=== PATIENT | female | born 1985 | race Two or more races ===

== ENCOUNTER 2016-08-31 11:38 | Outpatient (CLI) | payer OTHER | END 2016-08-31 11:39 | disposition home or self-care (01) | DX: Z36 Encounter for antenatal screening of mother (principal) ==

== ENCOUNTER 2016-09-28 15:24 | Outpatient (CLI) | payer OTHER | END 2016-09-28 15:25 | disposition home or self-care (01) | DX: Z11.3 Encounter for screening for infections with a predominantly sexual mode of transmission (principal) ==

== ENCOUNTER 2016-11-02 09:17 | Outpatient (CLI) | payer OTHER | END 2016-11-02 09:18 | disposition home or self-care (01) | DX: I34.9 Nonrheumatic mitral valve disorder, unspecified (principal); R07.9 Chest pain, unspecified ==

== ENCOUNTER 2016-11-15 07:38 | Outpatient (CLI) | payer OTHER | END 2016-11-15 07:39 | disposition home or self-care (01) | DX: Z36 Encounter for antenatal screening of mother (principal) ==

== ENCOUNTER 2017-01-04 11:51 | Outpatient (CLI) | payer OTHER ==
[2017-01-04 13:18] LABS: HCT - HEMATOCRIT 33.7 % (37.0-47.0); HGB - HEMOGLOBIN 11.5 g/dL (12.0-16.0); MEAN CORPUSCULAR HEMOGLOBIN 31.1 pg (27.0-31.0); MEAN CORPUSCULAR HGB CONC 34.1 g/dL (32.0-36.0); MEAN CORPUSCULAR VOLUME 91.2 fL (81.0-99.0); MEAN PLATELET VOLUME 8.1 fL (7.9-10.8); RED BLOOD COUNT 3.69 10^6/uL (4.20-5.40); RED CELL DISTRIBUTION WIDTH 12.8 % (12.0-15.0); WHITE BLOOD COUNT 12.7 x10^3/uL (4.8-10.8)
== END 2017-01-04 11:52 | disposition home or self-care (01) ==
LOC: LAB 11:51
PROVIDERS: ATTEND Nurse Practitioner Obstetrics & Gynecology
DX: Z36 Encounter for antenatal screening of mother (principal)
CPT/HCPCS: 36415; 82950; 86850

== ENCOUNTER 2017-01-11 07:56 | Outpatient (CLI) | payer OTHER | END 2017-01-11 07:57 | disposition home or self-care (01) | DX: R73.02 Impaired glucose tolerance (oral) (principal) ==

== ENCOUNTER 2017-02-08 13:49 | Outpatient (CLI) | payer OTHER ==
[2017-02-08 18:07] LABS: BILIRUBIN,URINE NEGATIVE (NEGATIVE); PH,URINE 5.5 PH (5.0-7.5)
[2017-02-08 19:20] LABS: WBC,URINE >25 /HPF (0-5)
== END 2017-02-08 13:50 | disposition home or self-care (01) ==
LOC: LAB.R 13:49
PROVIDERS: ATTEND Nurse Practitioner Obstetrics & Gynecology
DX: R82.99 Other abnormal findings in urine (principal)
CPT/HCPCS: 81001

== ENCOUNTER 2017-03-01 11:03 | Outpatient (CLI) | payer OTHER | END 2017-03-01 11:04 | disposition home or self-care (01) | LOC: LAB.R 11:03 | PROVIDERS: ATTEND Nurse Practitioner Obstetrics & Gynecology | DX: Z36 Encounter for antenatal screening of mother (principal) | CPT/HCPCS: 87081 ==

== ENCOUNTER 2017-03-13 23:43 | Inpatient (IN) | payer OTHER ==
[2017-03-14] MEDS ORDERED: fentaNYL 100 MCG/2 ML VIAL IVP PRN (01:24)
[2017-03-14] MEDS ORDERED: SODIUM CHLORIDE FLUSH 0.9% 10 ML SYRINGE IVP PRN (01:24)
--- NOTE | 2017-03-14 01:40 | HISTORY & PHYSICAL EXAMINATION ---
Admit History - Instructions [place]/Slash: -Left hand click circles element as positive or present. -Right hand click slashes element as negative or not present. - Visit Reason Visit Reason: Membranes rupture - Care: positive: [facility] Risk/History: positive: None Complications This : positive: None Smoking Status: Never smoker - Mother's Labs Mother's Blood Type: positive: O Mother's RH: positive: Positive GBS: positive: Group B Step Negative Rubella Status: positive: Immune - Other Maternal History Other Maternal History: HPI: This 31yo @ 37.2wks gestation by L= 9.1 wk U/S presents for spontaneous rupture of membranes. Upon evaluation she was noted to have grossly ruptured membranes with continuous leakage of fluid, nitrizine positive. Belle every 2-3 minutes. She was admitted to L&D for management. Dating criteria: 1.) LMP 06/26/16 2.) First ultrasound 08/24/16 @ 9.1wks - agrees 3.) First exam 08/24/16 @ 9.1wks - agrees 4.) Serial exams @ 13-35.3 wks -agrees OB History: G1: Current [place] History: Menarche age 13, menses every 24-26 days; irregular STD's- none [place] surgeries: none Abnormal paps and treatment: no Hx abnormal, last pap 04/27/2016 WNL PMH: Heart murmur, mitral valve prolapse dx @ age 13 *See Echo Report* Acne, vitiligo PSHx: injuinal hernia repair- 1988 Social Hx: Never smoke, no IVDA, previous alcohol use prior to >2/day Family Hx: Asthma- mother; Diabetes - mother diagnosed at age 50 Meds: PNV Allergies: NKA labs: 09/11/2016 Blood type O, pos, Antibody: neg Hgb 13.4, Hct 39.7, PLT 289 Rubella immune HIV nonreactive GC/CT ne01/2015 Hep B: neg Treponema nonreactive 28 wk labs: Hgb 11.5 Antibody neg 1 hour GTT 151 3 hour GTT: 93, 150, 127, 126 GBS negative Ultrasounds: 11/15/2016 FAS: posterior fundal placenta, no previa, size c/w dating, FAS WNL except echogenic focus affiliated with the left ventricle. Tdap: declined - wants Assessment: 31yo @ 37.2 wks gestation by L=9.1wk U/S SROM Early labor Desires epidural Plan: Admit to L&D Will perform SVE to monitor progression/adequacy of contractions Activity ad indicated; encouraged position changes Epidural per maternal request Anticipate spontaneous vaginal delivery Physical - Abdominal Exam Vital Signs: Temp Pulse Resp BP Pulse Ox 36.8 C 89 18 105/68 99 03/14/17 00:02 03/14/17 00:02 03/14/17 00:02 03/14/17 00:02 03/14/17 00:02
--- NOTE | 2017-03-14 01:41 | HISTORY & PHYSICAL EXAMINATION ---
Admit History - Instructions [place]/Slash: -Left hand click circles element as positive or present. -Right hand click slashes element as negative or not present. - Smoking Status: Never smoker - Other Maternal History Other Maternal History: Echocardiogram: 11/08/16 WNL -No evidence of mitral stenosis noted. There is trace mitral regurgitation. There is minimal bowing of the anterior mitral valve leaflet Physical - Abdominal Exam Vital Signs: Temp Pulse Resp BP Pulse Ox 36.8 C 89 18 105/68 99 03/14/17 00:02 03/14/17 00:02 03/14/17 00:02 03/14/17 00:02 03/14/17 00:02
--- NOTE | 2017-03-14 01:59 | PROVIDER PROGRESS NOTE ---
Labor Progress Note - Uterine Monitoring Uterine Monitoring Mode: positive: External toco Contraction Intensity: positive: Mild to moderate Uterine Resting Tone: positive: Soft - Monitoring Heart Rate Variability: positive: Moderate (6-25 bmp) Accelerations: positive: Present, 15x15 Decelerations: positive: None Strip Review: positive: Category I - Vaginal Exam Dilation (in cm): 1 Effacement (%): 50 Station: -2 Cervical Position: Posterior - Labor Progress Note Labor Progress Note/Additional Text: S: Had large gush of clear fluid 03/13/2017 @ 2300 and continued to leak. Feeling cramping with contractions. Able to rest in the bed and trying to get some sleep. supportive at bedside. O: Grossly rupture membranes, nitrizine positive. Contractions palpate moderate every 2-3 minutes lasting 40-90 seconds with soft resting tone. FHR baseline 140 , moderate variability, + accels, no decels. SVE 1/50/-2, posterior. A: 31yo @ 37.2wks gestation by L=9.1wk U/S SROM x 3 hours - afebrile FHR Category I P: Continuous monitoring Routine temperature checks Plan SVE in 4 hours or sooner PRN to determine contractions are adequate to make cervical change Reviewed with patient potential for starting Pitocin in 4 hours if contractions not adequately changing her cervix but at this time she is erma regularly. Encouraged rest at this time and if she becomes uncomfortable I encouraged her to ambulate and change positions. May get into jacuzzi. Epidural per maternal request. Pt verbalized understanding and agrees to above plan. Denies further questions or concerns.
[2017-03-14] MEDS: LACTATED RINGERS 1,000 ML IV SCH ×3 (02:16→15:26)
[2017-03-14 02:54] LABS: BASOPHILS # (AUTO) 0.1 10^3/uL (0.0-0.1); BASOPHILS % (AUTO) 0.6 %; EOSINOPHILS # (AUTO) 0.1 10^3/uL (0.0-0.7); EOSINOPHILS % (AUTO) 0.4 %; HCT - HEMATOCRIT 31.5 % (37.0-47.0); HGB - HEMOGLOBIN 10.9 g/dL (12.0-16.0); LYMPHOCYTES # (AUTO) 2.5 10^3/uL (1.5-3.5); LYMPHOCYTES % (AUTO) 17.7 %; MEAN CORPUSCULAR HEMOGLOBIN 30.5 pg (27.0-31.0); MEAN CORPUSCULAR HGB CONC 34.5 g/dL (32.0-36.0); MEAN CORPUSCULAR VOLUME 88.6 fL (81.0-99.0); MEAN PLATELET VOLUME 8.8 fL (7.9-10.8); MONOCYTES # (AUTO) 1.1 10^3/uL (0.0-1.0); MONOCYTES % (AUTO) 7.3 %; NEUTROPHILS # (AUTO) 10.6 10^3/uL (1.5-6.6); RED BLOOD COUNT 3.56 10^6/uL (4.20-5.40); RED CELL DISTRIBUTION WIDTH 13.6 % (12.0-15.0); UNCORRECTED WHITE BLOOD COUNT 14.3 x10^3/uL; WHITE BLOOD COUNT 14.3 x10^3/uL (4.8-10.8)
--- NOTE | 2017-03-14 08:18 | PROVIDER PROGRESS NOTE ---
Labor Progress Note - Uterine Monitoring Uterine Monitoring Mode: positive: External toco Contraction Intensity: positive: Moderate Uterine Resting Tone: positive: Soft - Monitoring Monitor Mode: positive: External ultrasound Heart Rate Variability: positive: Moderate (6-25 bmp) Accelerations: positive: Present, 15x15 Decelerations: positive: None Strip Review: positive: Category I - Vaginal Exam Dilation (in cm): 2 Effacement (%): 75 Station: -2 Cervical Position: Posterior - Labor Progress Note Labor Progress Note/Additional Text: S: Feeling more uncomfortable with contractions. [place] good in the jacuzzi but was eating breakfast while sitting on the exercise ball at the bedside. Was unable to sleep last night due to being both uncomfortable and excited to have a baby. Desires to labor without epidural for awhile but planning epidural eventually. May get back in the jacuzzi after breakfast. supportive at bedside. O: FHR baseline 140's, +accels, no decels. Contractions palpate moderate every 4 -5 minutes lasting 40-90 seconds with soft resting tone. SVE 2/75/-2, posterior , soft. A: 31yo @ 37.2 wks gestation by L=9.1wks Early labor SROM x 9hrs - afebrile P: Initiate pitocin protocol Continuous monitoring Encouraged ambulation and frequent position changes Epidural per maternal request Anticipate spontaneous vaginal delivery Recheck SVE in 4 hours or sooner PRN
[2017-03-14] MEDS: SODIUM CHLORIDE FLUSH 0.9% 10 ML SYRINGE IVP SCH ×2 (08:31→09:06)
[2017-03-14] MEDS ORDERED: OXYTOCIN/LACTATED RINGERS 250 ML IV SCH (09:00)
[2017-03-14] MEDS ORDERED: fent/BUPIV 2 MCG/0.125% 250 ML EP ONE (10:13)
[2017-03-14] MEDS ORDERED: NALBUPHINE 20 MG/ML AMP IVP PRN (11:42)
[2017-03-14] MEDS ORDERED: fent/BUPIV 2 MCG/0.125% 250 ML EP PRN ×2 (11:42→15:57)
[2017-03-14] MEDS ORDERED: LACTATED RINGERS 500 ML IV ONE (11:42)
[2017-03-14] MEDS ORDERED: diphenhydrAMINE INJ 50 MG/ML VIAL IVP PRN (11:42)
[2017-03-14] MEDS ORDERED: ePHEDrine 50 MG/ML VIAL IVP PRN (11:42)
[2017-03-14] MEDS ORDERED: METOCLOPRAMIDE 10 MG/2 ML VIAL IVP PRN (11:42)
[2017-03-14] MEDS ORDERED: NALOXONE 0.4 MG/ML VIAL IVP PRN (11:42)
[2017-03-14] MEDS ORDERED: ONDANSETRON 4 MG/2 ML VIAL IVP PRN (11:42)
--- NOTE | 2017-03-14 12:52 | PROVIDER PROGRESS NOTE ---
Labor Progress Note - Uterine Monitoring Uterine Monitoring Mode: positive: External toco Contraction Intensity: positive: Moderate to strong Uterine Resting Tone: positive: Soft - Monitoring Heart Rate Variability: positive: Moderate (6-25 bmp) Accelerations: positive: Present, 15x15 Decelerations: positive: Early, Late, Variable Strip Review: positive: Category II - Vaginal Exam Dilation (in cm): 3 Effacement (%): 75 Station: -2 Cervical Position: Midposition - Labor Progress Note Labor Progress Note/Additional Text: S: Pt comfortable with epidural. Able to rest and get some sleep. sleeping at bedside. O: SVE 3/75/-2, mid-position, soft; Contractions palpate strong every 2-4 minutes lasting 60-80 seconds. FHR baseline 130, moderate variability, +accels, 1 late deceleration, occasional early decelerations, and variable decelerations with quick return to baseline. Pitocin at 3 A: 31yo @ 37.3wks gestation by L=9.1wk U/S FHR Category II SROM x 12.5hrs - afebrile GBS neg P: Continue pitocin per protocol Position changes/rotation on peanut ball Continue active management Anticipate spontaneous vaginal delivery.
--- NOTE | 2017-03-14 17:06 | PROVIDER PROGRESS NOTE ---
Labor Progress Note - Uterine Monitoring Uterine Monitoring Mode: positive: External toco Contraction Intensity: positive: Strong Uterine Resting Tone: positive: Soft - Monitoring Monitor Mode: positive: External ultrasound Heart Rate Variability: positive: Minimal (0-5 bpm) Accelerations: positive: Present, 15x15 Decelerations: positive: Early, Variable Strip Review: positive: Category II - Vaginal Exam Dilation (in cm): 6 Effacement (%): 100 Station: 0 - Labor Progress Note Labor Progress Note/Additional Text: S: Pt comfortable with epidural. Questions about immediate period. Wants to have baby cleaned off prior to being put on her chest. O: FHR baseline 130's, period of minimal variability, +accels, occasional variable decels, occasional early decels, rare late decels. Contractions palpate firm every 2-4 minutes lasting 40-90 seconds. SVE at approximately 0600 6-7/100/0, stretchy. A: 31yo @ 37.3wks gestation by L=9.1wk U/S SROM x 18hrs - afebrile GBS neg Pitocin 1.5 P: Continue active management Continue to titrate pitocin per protocol Continue position changes in bed Anticipate spontaneous vaginal delivery
[2017-03-14] MEDS ORDERED: LIDOCAINE 1% 50 ML MDV ONE (18:41)
[2017-03-14] MEDS ORDERED: MINERAL OIL LIGHT 10 ML MC ONE (18:42)
[2017-03-14] MEDS ORDERED: WITCH HAZEL/GLYCERIN 1 EACH MED..PAD TOP PRN (20:17)
[2017-03-14] MEDS ORDERED: OXYTOCIN/LACTATED RINGERS 250 ML IV ONE (20:17)
[2017-03-14] MEDS ORDERED: HYDROCORTISONE/PRAMOXINE 10 GM PR PRN (20:17)
[2017-03-14] MEDS ORDERED: HYDROcod/ACETAM 5/325 MG TABLET PO PRN (20:17)
--- NOTE | 2017-03-14 20:29 | DELIVERY NOTE ---
Delivery Note - Labor Labor: positive: Spontaneous - Delivery Method Delivery Method: positive: Spontaneous vaginal delivery - Presentation Presentation: positive: Vertex, CR - left occiput anterior - Nuchal Cord Nuchal Cord: positive: None - Amniotic Fluid Description Amniotic Fluid Description: positive: Clear - Episiotomy Type Episiotomy Type: positive: None - Laceration Laceration: positive: 1st degree - Suture Suture Type: positive: Vicryl Suture Size: positive: 3-0 - Delivery Outcome Delivery Outcome: positive: Livebirth - [place]: positive: Placed in direct skin contact with mother, Bulb syringe, Stimulated, [place] used [place] sex: positive: Female - Cord Cord: positive: 3 vessels - Placenta Placenta: positive: Intact, Spontaneous - Estimated Blood Loss Estimated Blood Loss (in cc): 300 - Post Delivery Events Post Delivery Events: positive: No post delivery events - Delivery Comments (Free Text/Narrative) Delivery Comments (Free Text/Narrative): Labor: This 31yo @ 37.3wks gestation by L=9.1wk U/S presented @ 2330 on 03/13/2017 with SROM large amount of clear fluid. Cervix was 1/50/-2, vertes. Pt was erma every 2-3 minutes. She was allowed to labor for 4 hours - SVE recheck revealed 2/75/-2 and pitocin IV was started at that time and titrated per protocol. FHR demonstrated 120-130 baseline in a Category II pattern. Normal labor course. Epidural placed upon maternal request. Pt had ruptured membranes for 20.5hrs and remained afebrile. Normal SVB of a viable female named Dora. No nuchal. 's 8 and 9 at 1 and 5 minutes respectively at 1926 on 03/14/2017. The was placed on maternal abdomen, stimulated, dried, and placed skin to skin. The umbilical cord was allowed to stop pulsating and was doubly clamped and cut by FOB. Cord blood was obtained. Placenta delivered spontaneously and intact at 1931. 3VC. Pitocin was administered via IV for hemostasis. EBL 300mL. Uterine fundus firm and there is no excessive bleeding. The perineum, vagina, and cervix were inspected and found to have 1st degree laceration inside the vagina. Laceration was repaired using 3-[address]-1 needle in standard fashion under sterile conditions. Vaginal examination following the repair was done. Tissues well approximated. initiated. Family bonding well. Both mother and baby are in stable condition.
[2017-03-14] MEDS: IBUPROFEN 800 MG TABLET PO SCH (20:52)
[2017-03-14] MEDS ORDERED: LACTATED RINGERS 1,000 ML IV SCH (21:00)
--- NOTE | 2017-03-14 23:18 | PROVIDER PROGRESS NOTE ---
Subjective - Prog Note Date Prog Note Date: 03/14/17 Prog Note Time: 23:16 - Subjective Pt reports feeling: No change Subjective: Was called to bedside by RN. Patient delivered about 4 hours ago via . Epidural was stopped shortly after delivery. Patient attempted to ambulate without RN help when she fell. Patient hit knees bilaterally on the floor. Denies trauma to the head or abdomen. Feeling fine now. Denies loss of consciousness, dizziness. Objective - Vital Signs/Intake & Output Reviewed Vital Signs: Yes Vital Signs: Vital Signs x48h Temp Pulse Resp BP Pulse Ox 03/14/17 22:02 97.7 F 95 16 102/51 L 98 03/14/17 21:31 82 16 105/57 L 03/14/17 21:16 83 18 111/61 99 03/14/17 21:01 82 16 95/52 L 99 03/14/17 20:46 85 18 101/53 L 100 03/14/17 20:31 83 16 98/47 L 100 03/14/17 20:21 74 106/54 L 03/14/17 19:46 99 16 113/91 H 03/14/17 19:31 86 109/58 L Intake & Output: Intake & Output 03/11/17 03/12/17 03/13/17 03/14/17 23:59 23:59 23:59 23:59 Intake Total 3501 Output Total 1975 Balance 1526 - Objective General Appearance: positive: No acute distress, Alert Eyes Bilateral: positive: Normal inspection Extremities: positive: Non-tender, Full ROM, Nml appearance (No ecchymosis, nontender legs bilaterally) Neurologic/Psychiatric: positive: Oriented x3, Sensation nml, Mood/affect nml - Lab Results Fish Bones: 03/14/17 02:25 Other Labs: Lab Results x24hrs 03/14/17 Range/Units 02:25 WBC 14.3 H (4.8-10.8) x10^3/uL RBC 3.56 L (4.20-5.40) 10^6/uL Hgb 10.9 L (12.0-16.0) g/dL Hct 31.5 L (37.0-47.0) % MCV 88.6 (81.0-99.0) fL MCH 30.5 (27.0-31.0) pg MCHC 34.5 (32.0-36.0) g/dL RDW 13.6 (12.0-15.0) % Plt Count 232 (130-450) 10^3/uL MPV 8.8 (7.9-10.8) fL Neut # 10.6 H (1.5-6.6) 10^3/uL Lymph # 2.5 (1.5-3.5) 10^3/uL Glenn # 1.1 H (0.0-1.0) 10^3/uL Eos # 0.1 (0.0-0.7) 10^3/uL Baso # 0.1 (0.0-0.1) 10^3/uL Absolute Nucleated RBC 0.00 x10^3/uL Nucleated RBCs 0.0 /100WBC Assessment/Plan - Problem List (1) Delivery normal Impression: 31 yo S/p 03/14/2017 Normal recovery (2) Fall during current hospitalization Impression: S/p fall on knees bilaterally secondary to epidural No head or abdominal trauma Routine care Patient to call for RN help before attempting to ambulate
[2017-03-15] MEDS: ACETAMINOPHEN 500 MG TABLET PO SCH ×3 (02:09→20:20)
[2017-03-15] MEDS: IBUPROFEN 800 MG TABLET PO SCH ×2 (02:56→09:05)
--- NOTE | 2017-03-15 08:26 | PROVIDER PROGRESS NOTE ---
Subjective - Subjective Subjective: 03/15/2017 @ 0820, PPD#1 S: Bonding well with baby. without difficulty and states baby has a great latch. Bleeding decreased. Pain well controlled with ibuprofen. Perineum comfortable - rates pain 3/10. Pt had a fall approximately 4 hours after delivery. She stood up without requesting assistance from the nurse and landed on her knees. Her hands also helped soften the fall. O: Heart RRR w/ o M/G/R, lungs CTAB, abdomen soft and nontender. Fundus firm at U-1. Perineum intact. Bilateral LE's trace edema. No echymosis or injury noted to legs or hands as a result of her fall. A: 31yo -->P1 PPD#1 with TSVAB P: Continue routine pp care and meds. Plan for discharge home tomorrow. Objective - Vital Signs/Intake & Output Vital Signs: Vital Signs x48h Temp Pulse Resp BP Pulse Ox 03/15/17 05:20 36.9 C 79 18 105/54 L 100 03/15/17 02:00 37.1 C 73 18 100/44 L 98 Intake & Output: Intake & Output 03/12/17 03/13/17 03/14/17 03/15/17 23:59 23:59 23:59 23:59 Intake Total 3501 550 Output Total 8932 1550 Balance 1526 -1000 - Lab Results Fish Bones: 03/14/17 02:25
[2017-03-15] MEDS: DOCUSATE SODIUM 100 MG CAPSULE PO SCH ×2 (09:05→20:21)
[2017-03-15] MEDS: IBUPROFEN 100 MG/5 ML UDC PO PRN ×2 (15:13→22:33)
[2017-03-16] MEDS: ACETAMINOPHEN 500 MG TABLET PO SCH ×2 (03:23→11:36)
[2017-03-16] MEDS ORDERED: IBUPROFEN 100 MG/5 ML UDC ONE (06:23)
[2017-03-16] MEDS: IBUPROFEN 100 MG/5 ML UDC PO PRN ×2 (07:35→11:37)
[2017-03-16] MEDS: DOCUSATE SODIUM 100 MG CAPSULE PO SCH (09:11)
--- NOTE | 2017-03-16 09:12 | Discharge Plan ---
Discharge Plan Disposition: 01 Home, Self Care Condition: Good Diet: Regular Activity Restrictions: No Restrictions Shower Restrictions: No Driving Restrictions: No Weight Bearing: Full Weight Additional Instructions or Follow Up instructions: 03/16/2017; 0900; PPD#2 S: Bonding well with baby. without difficulty. Bleeding decreased. Pain well controlled with ibuprofen and Tylenol. Overall feeling a little sore from delivery. Perineum relatively comfortable. Improving from yesterday. O: Heart RRR w/ o M/G/R, lungs CTAB, abdomen soft and nontender. Fundus firm at U-2. Scant lochia rubra. Perineum intact. Bilateral LE's trace edema. Lita's neg. A: 31 yo -->P1 PPD#2 s/p TSVB P: Reviewed PP self care and warning signs. Discharge home today. Rx tylenol PO and Colace 100mg PO faxed to [facility]. Pt has liquid motrin at home which has been working well in combination with the tylenol to control her pain. Unsure of contraceptive plan at this time but leaning towards Mirena IUD. Will review further at 2 week pp visit. Continue PNV while . RTC in 2 weeks or sooner PRN. No Smoking: If you smoke, Please STOP! Call for help. Follow-up with: Elma Lopez CNM, KAMLESH [Provider Admit Priv/Credential] -
[2017-03-16] MEDS ORDERED: TETANUS/DIPHTHERIA/PERTUSSIS 0.5 ML SYRINGE IM ONE (10:00)
[2017-03-16 11:21] VITALS: BP 94/54
--- NOTE | 2017-03-16 16:24 | Labor Flowsheet ---
Labor Flowsheet Datetime Report Generated by CPN: 03/16/2017 16:24 Datetime: 03/16/2017 11:21 Temperature (F): 97.2 Temperature (C): 36.2 Temperature (C): 36.2 COMMUNICATION LaborFlag: Labor Datetime: 03/16/2017 11:20 Pulse: 82 SpO2 (%): 100 Datetime: 03/16/2017 11:18 VITAL SIGNS NBP Sys/Deepa/Mean (mmHg): 94 : 54 : 63 Datetime: 03/14/2017 19:31 MEDICATIONS Pitocin (milliunits): Increased to @ 50 Datetime: 03/14/2017 19:26 UTERINE ACTIVITY Monitor Mode: External Frequency (min): 2-2.5 Duration (sec): 60-90 Pattern: Normal: <= 5 Contractions in 10 Minutes ASSESSMENT A Monitor Mode: External US FHR Baseline Rate : 120 Variability: Moderate 6-25 bpm Accelerations: 15X15 Decelerations: Variable Category: Category II Oxygen Method: Room Air Datetime: 03/14/2017 19:02 Quality: Strong Resting Tone (Palpate): Relaxed Comments: pt starting to push. unable to access decels Datetime: 03/14/2017 19:00 I/O Interventions: Pierson Discontinued Datetime: 03/14/2017 18:55 STAGE 2 Pushing: Coached on Pushing; Urge to Push Pushing Position: Pushing with Contractions Pushing Progress: Descent with Pushing Datetime: 03/14/2017 18:54 VAGINAL EXAM Dilatation (cm): 10.0 Effacement (%): 100 Station: 1 Exam by: selena alexus cnm Vaginal Bleeding: Normal Show Cervix, Consistency: Soft Cervix, Position: Anterior Datetime: 03/14/2017 18:30 FHR Baseline Changes: No Baseline Change Vaginal Exam Comments: selena alexus notified. will be in Datetime: 03/14/2017 18:02 Patient Position/Activity: Left Tilt Datetime: 03/14/2017 17:08 Respirations: 15 Datetime: 03/14/2017 16:11 Pain Assessment Comments: pt comfortable. EFM monitoring well while pt is high fowlers. pit at 1.5, bp better with epidural down to 8 Patient Care Comments: frog legs Datetime: 03/14/2017 15:41 Hygiene: Peripad Changed Datetime: 03/14/2017 15:39 Anesthesia Comments: epidural turned down to 8 by garland aube Datetime: 03/14/2017 15:21 Pain Coping: Sleeping Datetime: 03/14/2017 14:15 Oxygen Amount (LPM): 10 Datetime: 03/14/2017 13:50 Stage of : Labor Datetime: 03/14/2017 13:17 Actions for Decelerations: Side to Side; Oxygen Applied Datetime: 03/14/2017 12:15 ASSESSMENT B Monitor Mode: External US Datetime: 03/14/2017 11:02 Pain Relief Measures: Epidural Given; Comfort Measures PATIENT CARE IV/Blood Work: IV Infusing per Order Comfort Measures: Family Support Labor/Induction: Labor Stages; Augmentation Pain Management: Epidural; Comfort Measures Medications: Pitocin Teaching Comments: education done 0830 Datetime: 03/14/2017 10:21 Anesthesia Level Check: T10- Umbilicus Datetime: 03/14/2017 09:56 Epidural Procedure: Cath Placed Datetime: 03/14/2017 09:53 PROCEDURE TIME OUT Procedure Verify: Correct Patient Identity; Correct Side and Site are Marked; Accurate Procedure Co nsent Form; Agreement on Procedure to be Done; Correct Patient Position Epidural Positioning: Sitting Datetime: 03/14/2017 09:36 ANESTHESIA Anesthesia Plans: Epidural Datetime: 03/14/2017 09:10 Analgesics/Sedatives: Fentanyl (mcg) @ 50 Datetime: 03/14/2017 08:40 Pitocin Checklist: At Least 1 Acceleration of 15 bpm x 15 Seconds in 30 Minutes or Adequate Variabi lity; No More than 1 Late Deceleration Occurred in Past 30 Minutes; No More than 2 Variable Decelerat ions > 60 Seconds in Duration and decreasing >60 bpm in 30 minutes; No More than 5 Uterine Contractio ns in 10 Minutes for any 20 Minute Interval; Uterus Palpates Soft between Contractions Datetime: 03/14/2017 06:45 Vibroacoustic Stim: PAIN Pain Scale: 5 Pain Presence: Intermittent Pain Type: Cramping; Contraction Pain Location: Abdomen; Back Pain Goal: 5 Datetime: 03/14/2017 06:20 Temperature Route: Oral Datetime: 03/14/2017 03:27 Monitor Interventions for FHR: Ultrasound Adjusted Datetime: 03/14/2017 02:20 TEACHING Instructional Method: Verbal; Patient Instructed; Family/Support Person Instructed Plan of Care: Plan of Care Discussed Unit Routine: Monitoring; IV Pumps; Medications
--- NOTE | 2017-03-19 11:08 | DISCHARGE SUMMARY ---
DATE OF ADMISSION: 03/14/2017 DATE OF DISCHARGE: 03/16/2017 DIAGNOSIS ON ADMISSION: A 31-year-old -0-0-0-0 at 37.3 weeks' gestation, presents for spontaneou s rupture of membranes. HOSPITAL COURSE: Upon evaluation she was noted to have grossly ruptured membranes with continuous danielle kage of fluid. Nitrazine positive. Belle every 2-3 minutes. She was admitted to [facility] for management. She was augmented with Pitocin and delivered a viable female . Apgars were 8 and 9 at 1 and 5 minutes respectively at 1926 on 03/14/2017. Estimated blood loss was 300 mL. She h as been doing well in her course. She was ambulating and tolerating a regular diet. She wa s urinating without difficulty and her lochia is normal. Her pain is well controlled with ibuprofen a nd Tylenol. She intends to follow with myself at [facility] in 2 and 6 weeks. She cal[place] s been given precautions to call if she has any worsening fevers, chills, abdominal pain, increased b leeding or foul smelling vaginal lochia. JOB #: [id number] EXT JOB #:[id number]
== END 2017-03-16 15:45 | disposition home or self-care (01) | DRG 774 ==
LOC: WFO 23:43 → FBP 23:44 → WFO 03-14 00:14 → FBP 03-14 00:15
PROVIDERS: ADMIT Nurse Practitioner Obstetrics & Gynecology; ATTEND Nurse Practitioner Obstetrics & Gynecology
PROC: 10E0XZZ Delivery of Products of Conception, External Approach (ICD-10-PCS; principal; 2017-03-14)
PROC: 0HQ9XZZ Repair Perineum Skin, External Approach (ICD-10-PCS; 2017-03-14)
DX: O42.02 Full-term premature rupture of membranes, onset of labor within 24 hours of rupture (principal); O90.89 Other complications of the puerperium, not elsewhere classified; O70.0 First degree perineal laceration during delivery; O99.824 Streptococcus B carrier state complicating childbirth; Z3A.37 37 weeks gestation of pregnancy; Z37.0 Single live birth; W18.39XA Other fall on same level, initial encounter; Y93.01 Activity, walking, marching and hiking; Y92.230 Patient room in hospital as the place of occurrence of the external cause
CPT/HCPCS: 85025; 99213

== ENCOUNTER 2019-11-05 09:02 | Outpatient (CLI) | payer OTHER ==
--- NOTE | 2019-11-05 11:40 | Mammography Report ---
Reason: BREAST LUMP Procedure Date: 11/05/2019 Accession Number: [id number] / [id number] Procedure: GREGORIA - Diagnostic Dig Bilat CPT Code: Final Report FULL RESULT: EXAM: Diagnostic Dig Bilat DATE: 11/05/2019 11:09 AM CLINICAL HISTORY: Lump left breast felt by clinician, site unspecified. Patient cannot feel lump today. TECHNIQUE: (B) - Bilateral CC and MLO views were obtained. COMPARISON: Baseline PARENCHYMAL PATTERN: (D) - The breasts demonstrate heterogeneously dense fibroglandular parenchyma bilaterally. FINDINGS: There are no suspicious masses, calcifications, or areas of distortion. IMPRESSION: Negative examination. BI-RADS category 1. Suggest clinical follow-up of the palpable abnormality. If it persists/recurs and a specific location is identified, follow-up by breast ultrasound could be performed. RECOMMENDATION: (ANNUAL) - Recommend routine annual screening mammography beginning at age 40. BI-RADS CATEGORY: (1) - Negative. STANDARD QUALIFYING STATEMENTS: 1. This examination was not reviewed with the aid of Computer-Aided Detection (CAD). 2. A negative or benign imaging report should not preclude biopsy if clinically suspicious findings are present. 3. Dense breasts may obscure an underlying neoplasm. 4. This examination was reviewed with the aid of 3D breast imaging (tomosynthesis).
== END 2019-11-05 09:03 | disposition home or self-care (01) ==
LOC: DI 09:02
PROVIDERS: ATTEND Nurse Practitioner
DX: N63.20 Unspecified lump in the left breast, unspecified quadrant (principal)
CPT/HCPCS: 77066

== ENCOUNTER 2020-05-03 07:00 | Outpatient (CLI) | payer OTHER | END 2020-05-03 23:59 | disposition home or self-care (01) | LOC: LAB.R 07:00 | PROVIDERS: ATTEND Family Medicine | DX: J02.9 Acute pharyngitis, unspecified (principal) | CPT/HCPCS: 87070; 87077 ==

== ENCOUNTER 2021-11-10 15:36 | Outpatient (CLI) | payer OTHER | END 2021-11-10 23:59 | disposition home or self-care (01) | LOC: LAB.R 15:36 | PROVIDERS: ATTEND Physician Assistant | DX: J02.9 Acute pharyngitis, unspecified (principal); Z20.822 Contact with and (suspected) exposure to COVID-19 | CPT/HCPCS: 87070 ==